=== PATIENT | male | born 1960 | race Caucasian/White ===

== ENCOUNTER 2016-11-14 10:07 | Day surgery (SDC) | payer MEDICAID ==
[~2016-11-14] VITALS: Ht 165.1 cm; Wt 68.2 kg
[2016-11-14] MEDS ORDERED: HYDROCODONE-APA1 TAB PO (10:43)
[2016-11-14] MEDS ORDERED: [UNRECOGNIZED DRUG - REMARK] PO (10:44)
[2016-11-14] MEDS ORDERED: CYCLOBENZAPRINE10 MG PO (10:44)
[2016-11-14 10:59] VITALS: BP 142/92; Ht 165.1 cm; Wt 68.2 kg
[2016-11-14 11:41] LABS: ANION GAP 12.6 mmol/L (8-16); CALCIUM 8.4 mg/dL (8.5-10.1); CREATININE - SERUM 1.3 mg/dL (0.6-1.3); POTASSIUM - SERUM 3.6 mmol/L (3.5-5.1)
== END 2016-11-14 17:07 | disposition home or self-care (01) ==
LOC: D.OPS 10:07
PROVIDERS: Anesthesiology
DX: Z12.11 Encounter for screening for malignant neoplasm of colon (principal); Z01.812 Encounter for preprocedural laboratory examination

== ENCOUNTER 2016-12-19 10:09 | Day surgery (SDC) | payer MEDICAID ==
[~2016-12-19] VITALS: Ht 165.1 cm; Wt 68.2 kg
[~2016-12-19 10:09] MED LIST: CYCLOBENZAPRINE10 MG PO; HYDROCODONE-APA1 TAB PO; [UNRECOGNIZED DRUG - REMARK] PO
[2016-12-19 11:30] LABS: BASOPHILS 0 % (0-2); EOSINOPHILS 0 % (0-7); HEMATOCRIT 44.3 % (42.0-54.0); HEMOGLOBIN 14.9 g/dL (13.5-17.5); IMMATURE GRANULOCYTES 0.3 % (0-5); LYMPHOCYTES 21.7 % (15-50); MCH 28.9 pg (26.0-34.0); MCHC 33.6 g/dL (31.0-37.0); MCV 85.9 fL (80.0-100.0); MEAN PLATELET VOLUME 9.1 fL (7.4-10.4); MONOCYTES 9.8 % (2-11); NEUTROPHILS 68.2 % (40-80); PLATELET COUNT 233 10x3/uL (130-400); RBC 5.16 10x6/uL (4.20-6.10); RDW 13.4 % (11.5-14.5)
[2016-12-19 11:37] LABS: ANION GAP 9.8 mmol/L (8-16); CALCIUM 9.1 mg/dL (8.5-10.1); CARBON DIOXIDE 32.1 mmol/L (21.0-32.0); CREATININE - SERUM 1.4 mg/dL (0.6-1.3); POTASSIUM - SERUM 3.9 mmol/L (3.5-5.1)
[2016-12-19 13:51] VITALS: BP 131/92; Ht 165.1 cm; Wt 68.2 kg
--- NOTE | 2016-12-19 16:29 | NUR ---
1530-RECD FROM GI LAB. RESP WITH EASE. 1540-PASSING GAS, FULL LIQUIDS SERVED. 1605-IV D/C, PATIENT VOIDS AND DRESSED 1620-DISCHARGE INSTRUCTIONS REVIEWED AND PATIENT D/C HOME VIA WHEELCHAIR TO PRIVATE [employer] WITH [employer] OFF[employer].
--- NOTE | 2016-12-22 11:49 | HP ---
PATIENT: MASON BALTAZAR MEDICAL RECORD: [id number] ACCOUNT: [id number] LOCATION:[facility] : 62 ADMISSION DATE: 12/19/16 HISTORY AND PHYSICAL EXAMINATION CHIEF COMPLAINT: Desires screening colonoscopy. HISTORY OF PRESENT ILLNESS: The patient has been having no rectal bleeding. No abdominal pain. He has never had a colonoscopy in the past. The risks, possible complications and alternatives to procedure were explained to the patient. He elects to proceed. ALLERGIES: No known drug allergies. HOME MEDICATIONS: Grethel, Flexeril, as well as some type of "heartburn medicine." SOCIAL HISTORY: Nonsmoker. PAST MEDICAL AND SURGICAL HISTORY: Gastroesophageal reflux and hypertension. PHYSICAL EXAMINATION: GENERAL: The patient does not appear acutely ill. He does not appear chronically ill. VITAL SIGNS: Reviewed. HEAD: External ears appear normal. EYES: Extraocular movements are intact. NECK: Trachea is midline. CHEST: No intercostal retractions. PULMONARY: Nonlabored, no stridor. ABDOMEN: No peritonitis with movement. IMPRESSION: Desires screening colonoscopy. PLAN: Screening colonoscopy. TRANSINT:[id number] Voice Confirmation ID: [id number] DOCUMENT ID: [id number] MAX LEVI MD at 1149 CC: [id number] DICTATION DATE: 12/19/16 1439 MANAGER CARDIAC: 12/19/16 1454 [facility] 12/19/16 [facility] [address] [place] [address]
--- NOTE | 2016-12-22 11:49 | OP ---
PATIENT NAME: MASON BALTAZAR MEDICAL RECORD: [id number] :62 LOCATION:D.OPS ADMISSION DATE: SURGEON: HASMUKH LEVI MD DATE OF OPERATION: 12/19/2016 PREOPERATIVE DIAGNOSES: 1. History of inadequate prep. 2. Desires screening colonoscopy. POSTOPERATIVE DIAGNOSES: 1. History of inadequate prep. 2. Desires screening colonoscopy with 1.4 cm sessile polyp at 35 cm. PROCEDURES: 1. Total colonoscopy to cecum. 2. Hot biopsy forceps polypectomy times 1. SURGEON: Hasmukh Levi MD OPERATIONS AND INTELLIGENCE ASSISTANT: None. BLOOD LOSS: Minimal. ANESTHESIA: IV sedation. COMPLICATIONS: None. The risks, possible complications and alternatives to procedure were explained to the patient. He elects to proceed. ENDOSCOPIC COURSE: The patient was conveyed to endoscopy suite electively on 12/19/2016. IV sedation was induced by anesthesia staff. The patient was placed in the Roa position. A digital rectal examination was performed. A colonoscope was inserted through the anus. It was easily advanced to the cecum. The prep was adequate. Upon withdrawal, irrigated and aspirated extensively. The patient did have pain and diverticulosis. I dragged the folds. The pullback was greater than 18-minute pullback. A single polyp was noted, this was removed in its entirety utilizing the hot biopsy forceps polypectomy technique. A retroflexed view was obtained in the rectum. I then unretroflexed the scope and removed it under direct vision. I plan to see the patient in my office in 2-3 weeks. It is very likely the patient will require surveillance colonoscopies in the future and his next surveillance colonoscopy will likely need to take place in 1 year. TRANSINT:[id number] Voice Confirmation ID: [id number] DOCUMENT ID: [id number] OPERATIVE REPORT [id number] GIOVANNYHASMUKH CORMIER MD at 1149 CC: [id number] DICTATION DATE: 12/19/16 1518 POWDER BLENDER: 12/19/16 1613 [facility] 12/19/16 [facility] [address] [place] [address]
== END 2016-12-19 16:30 | disposition home or self-care (01) ==
LOC: D.OPS 10:09
PROVIDERS: Anesthesiology
DX: Z12.11 Encounter for screening for malignant neoplasm of colon (principal); D12.5 Benign neoplasm of sigmoid colon; K57.30 Diverticulosis of large intestine without perforation or abscess without bleeding; K21.9 Gastro-esophageal reflux disease without esophagitis; I10 Essential (primary) hypertension; Z79.891 Long term (current) use of opiate analgesic; Z79.899 Other long term (current) drug therapy